=== PATIENT | female | born 1980 | race Native Hawaiian/Other Pacific Islander ===

== ENCOUNTER 2023-04-07 09:24 | Day surgery (SDC) | payer BC ==
--- NOTE | 2023-04-07 08:53 | HP ---
DATE OF SURGERY: 04/07/2023 HISTORY OF PRESENT ILLNESS: The patient is a 43-year-old had abdominal pain lasts a week at a time, had episodes the past few years. She follows with an oncologist and GI. No bloody stools. No change in bowel habits recently. Takes probiotics. Family history no colon cancer, negative for inflammatory bowel disease. PAST MEDICAL HISTORY: Chronic abdominal pain. Uterine thermal ablation. PAST SURGICAL HISTORY: Cholecystectomy. MEDICATIONS: Probiotic. Zyrtec. ALLERGIES: FLORINEF. SULFA. FAMILY HISTORY: Negative for colon cancer or Crohn's disease. SOCIAL HISTORY: No smoking or alcohol abuse. REVIEW OF SYSTEMS: Fourteen systems reviewed. No chest pain or palpitations. Other systems negative or noncontributory as above and per preadmission questionnaire. PHYSICAL EXAMINATION: Height 5'1". BMI 27. GENERAL: No acute distress. HEENT: Sclerae nonicteric. EOMI. Oral mucous membranes moist. NECK: No JVD. CHEST: Equal excursion, nonlabored breathing. CVS: Regular rate and rhythm. ABDOMEN: Soft. No peritoneal signs. EXTREMITIES: No significant edema. NEURO: Alert, oriented, moving extremities symmetrically. RECTAL: Deferred timed to endoscopy exam. PSYCH: Appropriate mood and affect. SKIN: Dry. IMPRESSION: The patient has abdominal pain somewhat lower. Recommend colonoscopy to evaluate for colitis, inflammatory bowel disease or other etiology. Risks and benefits explained in detail including bleeding or infection, risk of bowel injury or perforation, risk of missed or nondiagnosis or incomplete exam possibly requiring barium enema, other studies or procedures, general risk of anesthesia or sedation, risk of bowel prep but not limited to, possibility of inability to diagnose the etiology of her symptoms. She may need referral to GI for further studies. Will proceed with colonoscopy.
[2023-04-07 09:49] LABS: HCG URINE TEST NEGATIVE (NEGATIVE)
[2023-04-07] MEDS ORDERED: Lactated Ringers 1,000 ML IV ONE (09:59)
[2023-04-07] MEDS ORDERED: Lactated Ringers 1,000 ML IV SCH (10:00)
[2023-04-07] MEDS ORDERED: Xylocaine-Mpf 2% 5 Ml Vial ONE (11:41)
[2023-04-07] MEDS ORDERED: DIPRIVAN 200 MG/20 ML IV ONE ×2 (11:41→11:53)
[2023-04-07] MEDS ORDERED: Versed 2 MG/2 ML Injection ONE (11:41)
[2023-04-07 12:43] VITALS: BP 125/71; PULSE 79; O2SAT 99
--- NOTE | 2023-04-07 13:35 | OP ---
SURGERY DATE/TIME: 04/07/2023 1145 PREOPERATIVE DIAGNOSIS: History of some lower abdominal pain unclear etiology, need to evaluate with colonoscopy to evaluate for colitis, inflammatory bowel disease, or other etiology. POSTOPERATIVE DIAGNOSES: 1) ASA Class II. 2) Diverticulosis left colon. 3) Small early polyps versus hyperplastic lesion rectosigmoid colon and rectum. 4) Patchy area of inflammation distal rectum path pending (question prep irritation). PROCEDURES: 1) Colonoscopy to ileum. 2) Retrograde ileoscopy. 3) Random cold biopsies of ileum. 4) Random cold biopsies of colon to evaluate for microscopic ileitis or microscopic colitis. 5) Hot biopsy polypectomy small early polyp versus hyperplastic lesion rectosigmoid and rectum. 6) Withdrawal time approximately 11 minutes. SURGEON: Dr. Selwyn Fay. ANESTHESIA: MAC. ESTIMATED BLOOD LOSS: Minimal. PREP: Good. INDICATIONS: As noted above. Risks and benefits explained in detail but not limited to and consent obtained. DESCRIPTION OF PROCEDURE AND FINDINGS: The patient is taken to the operating room. MAC anesthesia induced. After official time out and no disagreement with planned procedure, digital rectal exam did not reveal any rectal masses. Video colonoscope inserted and passed up through the rectum. There was a small, little patchy area of inflammation that seemed to be more of a prep irritation-type thing. Random cold biopsies were taken during the procedure. Scope was carefully passed around the slightly tortuous sigmoid, descending, transverse and ascending colon to the cecum. The ileum was grossly unremarkable. Retrograde ileoscopy performed which is grossly unremarkable. Random cold biopsies taken in the ileum to evaluate for microscopic inflammation. The scope is pulled back, photo documented the ileum, appendiceal orifice and valve area. Prep was good overall, a little bit of liquidy stool. The scope is slowly and carefully withdrawn. Random cold biopsies taken throughout the colon and rectum to evaluate for microscopic colitis or proctitis. Good hemostasis noted. The scope is pulled back. She did have two large diverticula in the left colon in the sigmoid-descending area. In the rectosigmoid and rectum, there were two small early polyps versus hyperplastic lesion removed with hot biopsy polypectomy. Good hemostasis noted. The scope is withdrawn. Again, random cold biopsies taken of patchy inflammation distal rectum that may have been just prep irritation. There was no family to discuss the findings with. I will see her back in the office in a week.
== END 2023-04-07 12:45 | disposition home or self-care (01) ==
LOC: SDC 09:24
PROVIDERS: ATTEND Surgery
DX: R10.30 Lower abdominal pain, unspecified (principal); K57.30 Diverticulosis of large intestine without perforation or abscess without bleeding; K63.5 Polyp of colon; K62.1 Rectal polyp
CPT/HCPCS: 81025; J2250; J2704